=== PATIENT | female | born 1970 | race Caucasian/White ===

== ENCOUNTER → 2017-05-25 | Outpatient (CLI) | payer BC ==
[~2017-05-25] MED LIST: ALEVE220 MG PO; AMBIEN10 MG PO; BENTYL10 MG PO; IBUPROFEN400 MG PO; SYMBYAX 6-25 M1 EACH; ULTRAM50 MG PO; ZOFRAN ODT4 MG PO
--- NOTE | 2017-05-25 18:13 | Diagnostic Imaging Report ---
EXAM: Transabdominal Pelvic Ultrasound INDICATION: LEIOMYOMA OF UTERUS COMPARISON: None TECHNIQUE: Grayscale transverse and sagittal transabdominal images were obtained of the pelvis. CLINICAL HISTORY: 46 year old A0; last menstrual period: 05/08/2017 FINDINGS: Uterus: Diffuse heterogeneous echotexture. Orientation: Normal Size: cm, Normal Mass: Hypoechoic area in the mid portion of the uterine body measures 2.4 x 2.2 x 2.16 m, possibly a leiomyoma. Hypoechoic area in the fundus measures 1.1 x 0.8 x 1.5 cm, possibly a leiomyoma. Cervix: Normal Endometrium: Not well-visualized; estimated at 0.8 cm in thickness. Right ovary: Not identified. Left ovary: Size: 6.6 x 2.6 x 4.5 cm Mass/Cyst: Complex lesion measures 4.4 x 3.0 x 3.7 cm. Adnexa: Normal Cul-de-sac: No free fluid IMPRESSION: 1. Findings suggestive of a leiomyomatous uterus, with the largest discrete leiomyoma estimated 2.6 cm in maximal dimension. Transvaginal ultrasound or MRI of pelvis may be helpful for further characterization if clinically warranted. 2. 4.4 cm complex left ovarian lesion is nonspecific, possibly a dermoid cyst. Recommend follow-up ultrasound in 3 months to evaluate stability or lack there of. Signed by: Dr. Ari Quinteros M.D. on 05/25/2017 6:09 PM
== END ==
LOC: US 16:37
PROVIDERS: ATTEND Family Medicine
DX: D25.9 Leiomyoma of uterus, unspecified (principal)
CPT/HCPCS: 76856

== ENCOUNTER 2018-03-25 22:34 | Inpatient (IN) | payer BC ==
[~2018-03-25] VITALS: Ht 213.4 cm; Wt 73.5 kg
[~2018-03-25 22:34] MED LIST changes: -SYMBYAX 6-25 M1 EACH; +SYMBYAX 6-25 M1 EACH PO
--- OUTSIDE RECORDS SUMMARY | 2018-03-25 22:37 | XMS REPORT ---
[facility] Address Unknown Phone Unavailable Care Team Providers Care Gear Setter Name Role Phone Loren DOUGHERTY Unavailable Unavailable Problems This patient has no known problems. Allergies, Adverse Reactions, Alerts This patient has no known allergies or adverse reactions. Medications This patient has no known medications. Results Test Description Test Time Test Comments Text Results Atomic Results Result Comments US PELVIS COMPLETE NON OB [place] [address] Patient Name: BAILEY DAVEY MR #: [id number] : 1970 Age/Sex: 46/F Req #: [id number] [facility] Physician: Ordered by: SULLY DOUGHERTY MD Report #: [id number] Location: US Room/Bed: Procedure: [id number] US/US PELVIS COMPLETE NON OB Exam Date: 05/25/17 Exam Time: 1655 REPORT STATUS: Signed EXAM: Transabdominal Pelvic Ultrasound INDICATION: LEIOMYOMA OF UTERUS COMPARISON: None TECHNIQUE: Grayscale transverse and sagittal transabdominal images were obtained of the pelvis. CLINICAL HISTORY: 46 year old A0; last menstrual period: 05/08/2017 FINDINGS: Uterus: Diffuse heterogeneous echotexture. Orientation: Normal Size: cm, Normal Mass: Hypoechoic area in the mid portion of the uterine body measures 2.4 x 2.2 x 2.16 m, possibly a leiomyoma. Hypoechoic area in the fundus measures 1.1 x 0.8 x 1.5 cm, possibly a leiomyoma. Cervix: Normal Endometrium: Not well-visualized; estimated at 0.8 cm in thickness. Right ovary: Not identified. Left ovary: Size: 6.6 x 2.6 x 4.5 cm Mass/Cyst: Complex lesion measures 4.4 x 3.0 x 3.7 cm. Adnexa: Normal Cul-de-sac: No free fluid IMPRESSION: 1. Findings suggestive of a leiomyomatous uterus, with the largest discrete leiomyoma estimated 2.6 cm in maximal dimension. Transvaginal ultrasound or MRI of pelvis may be helpful for further characterization if clinically warranted. 2. 4.4 cm complex left ovarian lesion is nonspecific, possibly a dermoid cyst. Recommend follow-up ultrasound in 3 months to evaluate stability or lack there of. Signed by: Dr. Ari Grande M.D. on 05/25/2017 6:09 PM Dictated By: DALILA GRANDE MD, MD 08 Transcribed By: ASH on 05/25/171808 COPY TO: SULLY DOUGHERTY
[2018-03-25] MEDS ORDERED: KETOROLAC TROMETHAMINE 30 MG/ML VIAL IV ONE (23:00)
[2018-03-25] MEDS ORDERED: PROMETHAZINE 25MG/ NS 50ML (IV) IV ONE (23:00)
[2018-03-25] MEDS ORDERED: SODIUM CHLORIDE 0.9% 1000ML 1,000 ML ONE (23:00)
[2018-03-25] MEDS ORDERED: ONDANSETRON HCL INJ 2 MG/ML VIAL IV STA (23:03)
[2018-03-25] MEDS ORDERED: FENTANYL CITRATE/PF 100MCG/2 ML INJ IV ONE (23:15)
--- NOTE | 2018-03-25 23:40 | NUR ---
PT ROLLING IN BED, GETTING UP TO PACE ROOM, MOANING IN PAIN; ER MD NOTIFIED AND NEW ORDERS IN CHART - PT STATES THE FENTANYL ADMINISTERED HELPED "A LITTLE", BUT PAIN IS GETTING WORSE.
[2018-03-25] MEDS ORDERED: KETOROLAC TROMETHAMINE 30 MG/ML VIAL IV STA (23:42)
[2018-03-25] MEDS ORDERED: LORAZEPAM INJ 2 MG/ML VIAL IV ONE (23:45)
--- NOTE | 2018-03-25 23:50 | NUR ---
PT GIVEN ATIVAN IVP TO CALM PT DOWN; PT WAS PACING BACK AND FORTH IN THE ROOM, STATING "I CANT SIT STILL. IT HURTS TOO BAD." PT VERY AGITATED
[2018-03-26] VITALS (21 sets, daily range): BP systolic 117–174; BP diastolic 72–107
--- NOTE | 2018-03-26 | NUR ---
PT TO RADIOLOGY - PT UNABLE TO SIT STILL FOR TESTING, WILL NOT LAY IN BED;
--- NOTE | 2018-03-26 00:30 | NUR ---
PT AGITATION WORSE, PT IS BELIGERENT, CONFUSED AND TRYING TO LEAVE STATING "I NEED TO GO TO THE BATHROOM AT MY HOUSE. I NEED TO LEAVE" - PT GAIT UNSTEADY, WALKING WITH EYES CLOSED AND TRYING TO RUN INTO ALAMO. VERBAL ORDER FOR 4MG ATIVAN IVP FOR AGITATION
--- NOTE | 2018-03-26 01:00 | NUR ---
POISON CONTROL CONTACTED BY ER , ER STATES THAT POISON CONTROL STATES THAT IT COULD BE A REACTION FROM PHENERGAN ADMINISTRATION AND RECOMMENDS BENODIAZEPINE ADMINISTRATION FOR AGITATION AND GEODON IF NEEDED; PT STILL AGITATED IN ROOM, TRYING TO GET OUT OF BED, HALLUCINATING AND VERY COMBATIVE
--- NOTE | 2018-03-26 01:11 | NUR ---
4MG OF ATIVAN IVP ADMIN AGAIN TO PT FOR AGITATION PER ER MD; PT'S AGITATION SLIGHTLY BETTER AFTER LAST ATIVAN ADMINISTRATION, BUT PT IS STIL VERY COMBATIVE, TRYING TO GET OOB
--- NOTE | 2018-03-26 01:45 | NUR ---
PT AGITATION WORSENING, UNABLE TO LAY STILL OR SIT STILL, WILL NOT COOPERATE WITH STAFF, PT SPOUSE AT BEDSIDE STATING THIS IS NOT PT'S NORMAL BEHAVIOR; 10MG GEODON IM ADMIN TO RT HIP; PTS VSS, RESP EVEN AND NON LAB, BP 174/79, 100% O2 SATS
--- NOTE | 2018-03-26 02:00 | NUR ---
PT PLACED IN BED ON SIDE, TO PROTECT AIRWAY PT IS COMPROMISED; SPOUSE AT BEDSIDE, DOOR OPEN, ALL STAFF IN ROOM WITH PT PT IS TRYING TO GET OOB AND "GET OUT" PT REACHING FOR THINGS IN ROOM THAT ARE NOT THERE; PT CURRENTLY IN NO RESP DISTRESS, RESP EVEN AND NONLAB, O2 SATS 100% RA
[2018-03-26] MEDS ORDERED: ZIPRASIDONE 20 MG VIAL IM STA ×2 (02:10)
[2018-03-26] MEDS ORDERED: LORAZEPAM INJ 2 MG/ML VIAL IV ONE ×2 (02:15)
--- NOTE | 2018-03-26 02:15 | NUR ---
AGITATION BETTER, BUT PT IS STILL VERY COMBATIVE, TRYING TO GET OUT OF BED, THRASHING AROUND IN FRUSTRATION AND WILL NOT LAY STILL; ER MD AWARE AND ORDERS FOR 10MG GEODON IM ADMIN;
--- NOTE | 2018-03-26 03:00 | NUR ---
PT OCCASIONALLY TRYING TO GET OOB, PT STATES SHE CANNOT SIT STILL AND NEEDS TO "WALK"; PT INFORMED THAT SHE IS UNABLE TO AMBULATE SAFELY WITH ALL OF THE MEDICATION SHE HAS RECIEVED; PT ADAMANT SHE GET OOB; PT STILL REFUSING CARDIAC MONITORING, IS REMOVING CARDIAC MONITORS SOON THEY ARE PUT ON PT; ER MD AWARE THAT PT IS TRYING TO GET UP AND IS PULLING OFF MONITORS, NO NEW ORDERS IN CHART AT THIS TIME
--- NOTE | 2018-03-26 03:51 | NUR ---
PT RESTING IN BED AT THIS TIME WITH OCCASIONAL AGITAION, VSS, RESP EVEN AND NONLAB, WILL CONTINUE TO MONITOR; SPOUSE IN ROOM WITH PT
--- NOTE | 2018-03-26 04:00 | NUR ---
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
--- NOTE | 2018-03-26 05:00 | NUR ---
PT RESTING IN BED, OCCASIONALLY TRYING TO GET OOB, SPOUSE STILL AT BEDSIDE ASSISTING STAFF WITH KEEPING PT IN BED; PT STILL UNABLE TO TOLERATE RADIOLOGY TESTING - PT WILL NOT LIE STILL.
[2018-03-26] MEDS ORDERED: SODIUM CHLORIDE FLUSH 10 ML SYR INJ PRN (06:00)
--- NOTE | 2018-03-26 07:00 | NUR ---
AWAITING [facility] FOR TRANSPORT - ETA IS AT 0800
[2018-03-26 09:24] LABS: BASOPHILS % 0.3 % (0.0-1.0); EOSINOPHILS % 0.1 % (0.0-6.0); LYMPHOCYTES # (AUTO) 0.8 (1.0-3.2); LYMPHOCYTES % 6.1 % (18.0-39.1); MEAN CORPUSCULAR HEMOGLOBIN 32.7 pg (28-32); MEAN CORPUSCULAR HGB CONC 33.3 g/dL (31-35); MEAN CORPUSCULAR VOLUME 98.2 fL (81-99); MONOCYTES % 7.1 % (4.4-11.3); NEUTROPHILS # (AUTO) 11.9 (2.1-6.9); NEUTROPHILS % 85.9 % (38.7-80.0); PLATELET COUNT 227 x10e3/uL (140-360); RED BLOOD COUNT 3.97 x10e6/uL (3.6-5.1); RED CELL DISTRIBUTION WIDTH 12.4 % (11.7-14.4)
[2018-03-26] MEDS: SODIUM CHLORIDE 0.9% 1000ML 1,000 ML IV SCH ×2 (09:45→23:24)
--- NOTE | 2018-03-26 09:58 | NUR ---
Pt used BSC with 2 person assist, vomited in sick bag. Pt currently sleeping, resp even unlabored, grunts in response to verbal stimuli, falls asleep quickly. SCDs placed
[2018-03-26 10:19] LABS: ANION GAP 14.6 mmol/L (8-16); BLOOD UREA NITROGEN 9 mg/dL (7-26); BUN/CREATININE RATIO 15 (6-25); CALCIUM 9.4 mg/dL (8.4-10.2); CARBON DIOXIDE 24 mmol/L (22-29); CHLORIDE 101 mmol/L (98-107); EST GLOMERULAR FILTRATION RATE > 60 ML/MIN (60-); GLUCOSE 108 mg/dL (74-118); MAGNESIUM 1.9 MG/DL (1.3-2.1); POTASSIUM 3.6 mmol/L (3.5-5.1); SODIUM 136 mmol/L (136-145)
[2018-03-26] MEDS: ONDANSETRON HCL INJ 2 MG/ML VIAL IV PRN ×2 (11:50→17:19)
--- NOTE | 2018-03-26 14:51 | Diagnostic Imaging Report ---
CT BRAIN WO HISTORY: Fall COMPARISON: None. TECHNIQUE: Noncontrast axial scans were obtained from skull base to the vertex. Coronal and sagittal reconstructions obtained from the axial data. One or more of the following dose reduction techniques were used: Automated exposure control, adjustment of the mA and/or kV according to patient size, and/or utilization of iterative reconstruction technique. Beam hardening artifacts obscure some details. DISCUSSION: Scalp/Skull: Unremarkable. Brain sulci: Appropriate for patient's age. Ventricles: Normal in size and configuration. No hydrocephalus. Extra-axial spaces: No masses or fluid collections. Parenchyma: Minimal carotid siphon calcification is present. No masses, hemorrhage, or large vascular territory acute infarct. Dural sinuses: No abnormal densities. Sellar/Suprasellar region: Intact. Skull base: Intact. Incidental findings: None. IMPRESSION: No acute intracranial abnormalities. Signed by: Dr. Kadeem Carson M.D. on 03/26/2018 2:47 PM
--- NOTE | 2018-03-26 15:14 | Diagnostic Imaging Report ---
EXAMINATION: CT of the abdomen and pelvis with contrast. TECHNIQUE: Spiral CT images of the abdomen and pelvis were performed from the lung bases to the lesser trochanters after the intravenous administration of 100 cc of Isovue 370 and the oral administration of water. Coronal and sagittal reformatted images were obtained. Low-dose technique was utilized. DLP: 374.49 mGy-cm COMPARISON: Abdominal and pelvic CT dated 12/05/2015 CLINICAL HISTORY: Abdominal pain with nausea and vomiting DISCUSSION: ABDOMEN/PELVIS: LOWER THORAX:Unremarkable. HEPATOBILIARY: No focal hepatic lesions. No intra-or extrahepatic biliary ductal dilation. The gallbladder is normal. SPLEEN: No splenomegaly. PANCREAS: No focal masses or ductal dilatation. ADRENALS: No adrenal nodules. KIDNEYS/URETERS: No hydronephrosis, stones, or solid mass lesions. PELVIC ORGANS/BLADDER: The bladder is normal. PERITONEUM/RETROPERITONEUM: No definite free air. LYMPH NODES: No intra-abdominal, retroperitoneal, pelvic or inguinal lymphadenopathy. VESSELS: The celiac trunk,superior and inferior mesenteric and bilateral renal arteries are patent The portal, superior mesenteric and splenic veins are patent. GI TRACT: Postoperative changes associated with a gastric bypass. In the upper/mid abdomen there is a "whirl" sign (axial series, images 33-44) consistent with midgut volvulus. Comparison to the old study shows this a new finding. In addition the mesentery appears low density likely secondary to edema. BONES AND SOFT TISSUE: No bony destructive lesions. No soft tissue abnormalities. Discussed with Dr. Turk at the time of interpretation. IMPRESSION: 1. Findings in the upper/mid abdomen with a "whirl" sign consistent with midgut volvulus. 2. Associated edema of the mesentery. Signed by: Dr. Bhupendra Neff DO on 03/26/2018 3:10 PM
[2018-03-26] MEDS ORDERED: [UNRECOGNIZED DRUG - OTHER] PO (15:24)
[2018-03-26] MEDS ORDERED: TIZANIDINE HCL4 M1 PO (15:34)
[2018-03-26] MEDS ORDERED: METHYLPREDNISOLO4 M1 PO (15:38)
[2018-03-26] MEDS ORDERED: TYLENOL WITH C1 EACH PO (15:38)
--- NOTE | 2018-03-26 15:48 | NUR ---
Daljit Be and Shantel Philip paged for consults, awaiting responses. Pt continues to decline pain meds
--- NOTE | 2018-03-26 16:08 | NUR ---
MD Luis Carlos Be returned page, no new orders rec'd, states that he will see pt soon.
--- NOTE | 2018-03-26 17:00 | NUR ---
MD Luis Carlos Be and Anesthesiologist at . When asked if labs, Type and Screen, Nair catheter, NGT, or other meds should be drawn or given, both MDs stated that none were needed at time.
--- NOTE | 2018-03-26 17:37 | Consultation ---
DATE OF CONSULTATION: March 26, 2018 SURGICAL CONSULTATION CHIEF COMPLAINT: Abdominal pain. HISTORY OF PRESENT ILLNESS: The patient is a 47-year-old female with a 1-day history of pain in the periumbilical epigastric area with nausea and vomiting. No previous episode. No fever, chills or diarrhea. PAST MEDICAL HISTORY: Significant for morbid obesity for which she underwent gastric bypass in 2011. ALLERGIES: SHE IS ALLERGIC TO CODEINE. SOCIAL HABITS: She denies smoking or and abuse. REVIEW OF SYSTEMS: No chest pain, shortness of breath or cough. PHYSICAL EXAMINATION: VITALS: Stable. She is afebrile. GENERAL: She is awake, alert, in moderate discomfort. HEENT: Sclerae are nonicteric. NECK: Supple. LUNGS: Clear. HEART: Regular rate and rhythm. ABDOMEN: Soft with guarding and tenderness in the epigastric area with mild rebound. EXTREMITIES: Without cyanosis or edema. The patient's white cell count is 13.8, hemoglobin of 13. Creatinine is 0.6. Abdominal CT showed evidence of midgut volvulus with whirl sign. There is associated bowel edema. 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 PLAN: Exploratory laparotomy, reduction of volvulus, and possible bowel resection, repair of internal hernia. Attendant risks discussed. Job#: [id number] JUSTICE
[2018-03-26] MEDS ORDERED: ONDANSETRON HCL INJ 2 MG/ML VIAL ONE (17:39)
[2018-03-26] MEDS ORDERED: LIDOCAINE HCL 2% LOCAL INJ 5 ML SDV VIAL INJ ONE (17:39)
[2018-03-26] MEDS ORDERED: SEVOFLURANE INHAL SOLN 250 ML PEN BTL ONE (17:39)
[2018-03-26] MEDS ORDERED: ACETAMINOPHEN 1000 MG/100 ML IV ONE (17:39)
[2018-03-26] MEDS ORDERED: CEFOXITIN SOD 1 GM VIAL ONE (17:39)
[2018-03-26] MEDS ORDERED: PROPOFOL IV EMULSION 10 MG/ML 20 ML VIAL ONE (17:39)
[2018-03-26] MEDS ORDERED: KETOROLAC TROMETHAMINE 30 MG/ML VIAL ONE (17:39)
[2018-03-26] MEDS ORDERED: DEXAMETHASONE SOD PHOS INJ 4 MG/ML VIAL ONE (17:39)
[2018-03-26] MEDS ORDERED: SUCCINYLCHOLINE 200 MG/10 ML SYR ONE (17:39)
[2018-03-26] MEDS ORDERED: ROCURONIUM BROMIDE 10 MG/ML 5ML VIAL ONE (17:39)
[2018-03-26] MEDS ORDERED: MIDAZOLAM HCL 2 MG/2 ML VIAL ONE (17:51)
[2018-03-26] MEDS ORDERED: FENTANYL CITRATE/PF 100MCG/2 ML INJ ONE ×2 (17:51→20:19)
[2018-03-26] MEDS ORDERED: BUPIVACAINE 0.5%/EPI 30 ML SDV INJ ONE (19:44)
[2018-03-26] MEDS ORDERED: HYDROMORPHONE 1MG/1ML INJ IV PRN (20:00)
--- NOTE | 2018-03-26 21:22 | Operative Report ---
DATE OF PROCEDURE: March 26, 2018 PREOPERATIVE DIAGNOSIS: Mesenteric volvulus. POSTOPERATIVE DIAGNOSES: 1. Mesenteric volvulus. 2. Yepez hernia. PROCEDURE: Reduction of mesenteric volvulus with repair of Yepez hernia. ANESTHESIA: General, . INDICATIONS: [age]-old female with history of abdominal pain for [address] scan showed whirling of the mesentery consistent with mesenteric volvulus. Patient consented for exploratory laparotomy and repair of mesenteric volvulus. PROCEDURE FINDINGS: Mesenteric volvulus with viable intestine after reduction. DESCRIPTION OF THE PROCEDURE: The patient was brought to the OR, intubated, abdomen was prepped with alcohol and draped in sterile fashion. An upper midline incision is made to the linea alba entering the peritoneal cavity. Manual exploration is carried out. The small bowel was noted to be obstructed from a mesenteric volvulus through a Yepez hernia underneath the Rosalina limb. We then proceeded to reduce the mesenteric volvulus by running the small bowel in a retrograde fashion from the ileocecal valve in a retrograde fashion and reducing the incarcerating small bowel from the incarcerations underneath the Rosalina limb. After reduction, the bowel pinked up and is viable with peristalsis. We then run the small bowel from the Rosalina limb distally to the jejunojejunostomy and beyond to the ileocecal valve with no further obstruction or twisting. The Yepez defect is then closed with 2-0 silk stitch obliterating the space with interrupted 2-0 silk suture taking bites into the mesentery, the small bowel as well as the transverse colon. At the end of the hernia repair, operative field was irrigated, hemostasis achieved. We then closed the abdomen by approximating the linea alba with running #1 PDS and skin with rich. The patient was extubated and transported in a guarded condition to recovery room. ESTIMATED BLOOD LOSS: 5 mL. Job#: [id number]
[2018-03-26] MEDS ORDERED: IOPAMIDOL 370 MG/ML 200 ML INFUS..BTL INJ ONE (22:42)
[2018-03-26] MEDS ORDERED: SODIUM CHLORIDE 0.9% 50ML 50 ML ONE (22:42)
[2018-03-26] MEDS: CEFOXITIN SOD 1 GM VIAL IV SCH (23:24)
[2018-03-27] VITALS (17 sets, daily range): BP systolic 125–147; BP diastolic 75–96
[2018-03-27] MEDS ORDERED: CEFOXITIN 1GM/ NS 50ML 50 ML IV SCH
[2018-03-27 04:57] LABS: BASOPHILS % 0.2 % (0.0-1.0); HEMATOCRIT 39.9 % (34.2-44.1); HEMOGLOBIN 13.4 g/dL (12.0-16.0); LYMPHOCYTES # (AUTO) 0.4 (1.0-3.2); LYMPHOCYTES % 2.1 % (18.0-39.1); MEAN CORPUSCULAR HEMOGLOBIN 32.3 pg (28-32); MEAN CORPUSCULAR HGB CONC 33.6 g/dL (31-35); MEAN CORPUSCULAR VOLUME 96.1 fL (81-99); MONOCYTES # (AUTO) 1.2 (0.2-0.8); MONOCYTES % 6.1 % (4.4-11.3); NEUTROPHILS # (AUTO) 17.6 (2.1-6.9); PLATELET COUNT 250 x10e3/uL (140-360); RED BLOOD COUNT 4.15 x10e6/uL (3.6-5.1); RED CELL DISTRIBUTION WIDTH 12.4 % (11.7-14.4)
[2018-03-27 05:17] LABS: ALANINE AMINOTRANSFERASE 20 IU/L (0-55); ALBUMIN 3.4 g/dL (3.5-5.0); ALBUMIN/GLOBULIN RATIO 1.2 (0.8-2.0); ALKALINE PHOSPHATASE 39 IU/L (40-150); ANION GAP 13.1 mmol/L (8-16); BLOOD UREA NITROGEN 9 mg/dL (7-26); BUN/CREATININE RATIO 15 (6-25); CARBON DIOXIDE 23 mmol/L (22-29); CHLORIDE 104 mmol/L (98-107); CREATININE, SERUM 0.62 mg/dL (0.57-1.11); EST GLOMERULAR FILTRATION RATE > 60 ML/MIN (60-); GLUCOSE 122 mg/dL (74-118); POTASSIUM 4.1 mmol/L (3.5-5.1); SODIUM 136 mmol/L (136-145)
[2018-03-27] MEDS: SODIUM CHLORIDE 0.9% 1000ML 1,000 ML IV SCH ×3 (05:55→22:42)
[2018-03-27] MEDS: CEFOXITIN SOD 1 GM VIAL IV SCH ×2 (05:55→11:59)
[2018-03-27] MEDS: KETOROLAC TROMETHAMINE 30 MG/ML VIAL IM PRN (08:53)
[2018-03-27] MEDS: ONDANSETRON HCL INJ 2 MG/ML VIAL IV PRN (08:53)
[2018-03-27] MEDS: FAMOTIDINE 20 MG/2 ML VIAL IV SCH ×2 (08:53→17:00)
[2018-03-27] MEDS: HYDROMORPHONE 2MG/ML 2 MG/ML ML IV PRN ×4 (11:59→23:11)
--- NOTE | 2018-03-27 13:43 | NUR ---
Pt reports that she is passing flatus, tolerating Bariatric clear liquid diet, bowel sounds active and gaseous to auscultation. MD Be paged to inquire about downgrade, awaiting callback.
--- NOTE | 2018-03-27 14:18 | NUR ---
MD Be called back, stated that MS is okay from his standpoint. MD Turk paged to inquire about downgrade, awaiting response.
[2018-03-28] VITALS: BP 124/73
[2018-03-28 04:00] VITALS: BP 127/78
[2018-03-28] MEDS: HYDROMORPHONE 2MG/ML 2 MG/ML ML IV PRN (04:14)
[2018-03-28] MEDS: SODIUM CHLORIDE 0.9% 1000ML 1,000 ML IV SCH (06:49)
[2018-03-28 07:34] LABS: BASOPHILS # (AUTO) 0.1 (0.0-0.1); BASOPHILS % 0.7 % (0.0-1.0); EOSINOPHILS # (AUTO) 0.2 (0.0-0.4); EOSINOPHILS % 2.6 % (0.0-6.0); HEMATOCRIT 34.4 % (34.2-44.1); HEMOGLOBIN 11.3 g/dL (12.0-16.0); LYMPHOCYTES # (AUTO) 1.8 (1.0-3.2); LYMPHOCYTES % 20.6 % (18.0-39.1); MEAN CORPUSCULAR HGB CONC 32.8 g/dL (31-35); MEAN CORPUSCULAR VOLUME 100.6 fL (81-99); MONOCYTES # (AUTO) 0.9 (0.2-0.8); MONOCYTES % 10.4 % (4.4-11.3); NEUTROPHILS # (AUTO) 5.7 (2.1-6.9); NEUTROPHILS % 64.9 % (38.7-80.0); PLATELET COUNT 192 x10e3/uL (140-360); RED BLOOD COUNT 3.42 x10e6/uL (3.6-5.1); RED CELL DISTRIBUTION WIDTH 12.9 % (11.7-14.4)
[2018-03-28 08:00] VITALS: BP 128/69
[2018-03-28 08:51] LABS: ANION GAP 7.2 mmol/L (8-16); BLOOD UREA NITROGEN 8 mg/dL (7-26); BUN/CREATININE RATIO 13 (6-25); CALCIUM 8.8 mg/dL (8.4-10.2); CARBON DIOXIDE 27 mmol/L (22-29); CHLORIDE 105 mmol/L (98-107); EST GLOMERULAR FILTRATION RATE > 60 ML/MIN (60-); GLUCOSE 91 mg/dL (74-118); POTASSIUM 4.2 mmol/L (3.5-5.1); SODIUM 135 mmol/L (136-145)
--- NOTE | 2018-03-28 08:52 | History and Physical ---
DATE OF SERVICE: March 27, 2018 TIME: 10 a.m. PRIMARY CARE PHYSICIAN: Dr. Parekh CHIEF COMPLAINT: Abdominal pain, nausea and vomiting. HISTORY OF PRESENT ILLNESS: This is a 47-year-old woman with a history of morbid obesity, who had a gastric bypass in 2011, now developing nausea and vomiting for 1 day with abdominal discomfort. Went to [facility] urgent care facility. The patient was given Phenergan and became confused. Given Ativan on multiple occasions. Had difficulty obtaining a CT scan of the brain, which was ordered for evaluation of the confusion. The patient was subsequently transitioned over here to [facility] for management. CT scan of the abdomen was obtained and showed midgut volvulus. She was admitted for further evaluation and management. Surgical team was consulted. PAST MEDICAL HISTORY: Morbid obesity, status post gastric bypass in 2011, sleep apnea, cigarette use. PAST SURGICAL HISTORY: Gastric bypass in 2011, tonsillectomy. ALLERGIES: PER ELECTRONIC MEDICAL RECORDS. FAMILY/SOCIAL HISTORY: Patient is . She has no children. Occasional alcohol. She smokes half a pack of cigarettes per day. She works at the hospital. MEDICATIONS: Per electronic medical records. REVIEW OF SYSTEMS: Denies any dizziness or chest pain. Denies any fever, chills or sweats. Denies any headache, vision changes, leg pain, back pain. PHYSICAL EXAMINATION VITAL SIGNS: Reviewed. GENERAL: A tired-appearing woman resting in bed. HEENT: Anicteric. CARDIOVASCULAR: Normal S1 and S2. LUNGS: Moderate breath sounds. ABDOMEN: Soft and nondistended. She has a dressing midline, which is clean and dry. She has appropriate tenderness in the abdominal wall. EXTREMITIES: No edema or calf tenderness. NEUROLOGICAL: Alert and oriented times 3. Moving all extremities. SKIN: Dry. PSYCHIATRIC: Normal affect. LABS: Reviewed. MEDICATIONS: Reviewed. ASSESSMENT: This is a 47-year-old woman with: 1. Acute midgut volvulus. 2. Acute metabolic encephalopathy. 3. Hypertension. 4. Mesenteric edema. 5. Yepez hernia. 6. Cigarette use. PLAN 1. She is status post surgical management of the midgut volvulus by reduction. She is also status post surgical management of Yepez hernia repair. 2. Continue pain medication. 3. Encephalopathy has improved. 4. Follow up leukocytosis. 5. Rehydrate the patient. 6. Use Pepcid for GI prophylaxis and add SCD. 7. Disposition. Monitor closely. Job#: [id number] RI
[2018-03-28] MEDS ORDERED: SENNOSIDES 8.6 MG TAB PO SCH (09:00)
[2018-03-28] MEDS ORDERED: DOCUSATE SODIUM 100 MG CAP PO SCH (09:00)
--- NOTE | 2018-03-28 09:08 | Progress Note ---
DATE: March 28, 2018 TIME: 8:26 a.m. OVERNIGHT: Feeling better. REVIEW OF SYSTEMS: Denies any dizziness, chest pain, shortness of breath, fever, chills, sweats, leg pain, back pain, vision changes. VITAL SIGNS: Reviewed. PHYSICAL EXAMINATION GENERAL: A tired-appearing woman resting in bed. HEENT: Anicteric. CARDIOVASCULAR: Normal S1 and S2. LUNGS: Moderate breath sounds. ABDOMEN: She has a dressing in place, clean and dry. She has appropriate tenderness at that site. EXTREMITIES: No edema or calf tenderness. NEUROLOGICAL: Alert and oriented times 3. Moving all extremities. SKIN: Dry. PSYCHIATRIC: Normal affect. LABS: Reviewed. MEDICATIONS: Reviewed. ASSESSMENT: This is a 47-year-old woman. 1. Acute midgut volvulus. 2. Mesenteric edema. 3. Hypertension. 4. Acute metabolic encephalopathy. 5. Cigarette use. 6. Yepez hernia. PLAN 1. The patient is status post surgical reduction of the volvulus and management of the hernia. 2. She is now on a full liquid diet. 3. She is passing flatus, but no bowel movement yet. 4. Will add bowel regimen. 5. Pain control. 6. Continue Pepcid and SCD. 7. Disposition: Discharge planning. Obtain labs. Job#: [id number]
[2018-03-28] MEDS: FAMOTIDINE 20 MG/2 ML VIAL IV SCH (09:13)
[2018-03-28 09:15] VITALS: BP 128/69
--- NOTE | 2018-03-28 09:15 | NUR ---
Pt received resting in bed. Alert and oriented x4 with abdominal dressing dry and intact. Pt oriented to staff and surroundings, and encouraged to press call schroeder if help needed. Pt verbalized understanding of teaching. All meds given as ordered. Fall precautions maintained. Call schroeder within reach. Will monitor.
[2018-03-28] MEDS: KETOROLAC TROMETHAMINE 30 MG/ML VIAL IM PRN (10:23)
[2018-03-28 13:08] VITALS: BP 125/67
[2018-03-28 16:16] VITALS: BP 118/76
[2018-03-28] MEDS ORDERED: ULTRAM50 MG PO (17:27)
[2018-03-28] MEDS ORDERED: SENNA LAXATIVE8.6 MG PO (17:27)
[2018-03-28] MEDS ORDERED: DOCUSATE SODIU100 MG PO (17:28)
--- NOTE | 2018-03-28 17:45 | NUR ---
Pt educated regarding meds, diet, activities, and follow up appointment with PCP. Pt verbalized understanding of teaching. Refused wheelchair. Escorted off unit with tech. Dr. Turk to call in meds to [facility] pharmacy [phone]
== END 2018-03-28 17:49 | disposition home or self-care (01) | DRG 329 ==
LOC: FSED 22:34 → ERHOLD 03-26 06:01 → ICU 03-26 08:31 → MED/SURG3 03-27 18:42 → ICU 03-27 18:44 → MED/SURG3 03-27 20:12
PROVIDERS: ADMIT Internal Medicine; ATTEND Internal Medicine
PROC: 0DS80ZZ Reposition Small Intestine, Open Approach (ICD-10-PCS; 2018-03-26)
PROC: 0DQV0ZZ Repair Mesentery, Open Approach (ICD-10-PCS; 2018-03-26)
PROC: 0DSA0ZZ Reposition Jejunum, Open Approach (ICD-10-PCS; principal; 2018-03-26 15:30)
DX: K56.2 Volvulus (principal); G93.41 Metabolic encephalopathy; K45.0 Other specified abdominal hernia with obstruction, without gangrene; Z68.1 Body mass index [BMI] 19.9 or less, adult; Z98.84 Bariatric surgery status; I10 Essential (primary) hypertension; Z72.0 Tobacco use; Z88.5 Allergy status to narcotic agent; Z88.8 Allergy status to other drugs, medicaments and biological substances; G47.33 Obstructive sleep apnea (adult) (pediatric); R63.6 Underweight
CPT/HCPCS: 36415; 70450; 74177; 80048; 80053; 80307; 81003; 83605; 83735; 85025; 96374; 96375; 96376; 99285; J0694; J1100; J1885; J2001; J2060; J2250; J2405; J2550; J3486; J7030; Q9967